=== PATIENT | male | born 1990 | race Caucasian/White ===

== ENCOUNTER 2019-01-24 13:08 | Emergency (ER) | payer OTHER ==
[~2019-01-24] VITALS: Ht 180.3 cm; Wt 73.9 kg
[2019-01-24 13:17] VITALS: BP 157/102
[2019-01-24] MEDS ORDERED: NAPROSYN500 MG PO (13:26)
== END 2019-01-24 13:32 | disposition home or self-care (01) ==
LOC: M.ERS 13:08
DX: M26.602 Left temporomandibular joint disorder, unspecified (principal); F17.210 Nicotine dependence, cigarettes, uncomplicated; Z98.890 Other specified postprocedural states

== ENCOUNTER 2020-02-28 22:15 | Emergency (ER) | payer OTHER ==
[~2020-02-28] VITALS: Ht 180.3 cm; Wt 77.1 kg
[~2020-02-28 22:15] MED LIST: NAPROSYN500 MG PO
[2020-02-28 22:26] VITALS: BP 152/95
[2020-02-28 22:56] LABS: INFLUENZA A ANTIGEN Negative (Negative); INFLUENZA B ANTIGEN Negative (Negative)
== END 2020-02-28 23:06 | disposition home or self-care (01) ==
LOC: M.ERS 22:15
PROVIDERS: Emergency Medicine
DX: J06.9 Acute upper respiratory infection, unspecified (principal); Z20.828 Contact with and (suspected) exposure to other viral communicable diseases; F17.210 Nicotine dependence, cigarettes, uncomplicated; Z90.49 Acquired absence of other specified parts of digestive tract

== ENCOUNTER 2020-10-06 20:28 | Emergency (ER) | payer OTHER ==
[~2020-10-06] VITALS: Ht 180.3 cm; Wt 90.7 kg
[2020-10-06] MEDS ORDERED: LISINOPRIL10 MG PO (23:10)
[2020-10-06] MEDS ORDERED: DOXYCYCLINE 10100 M2 PO (23:10)
[2020-10-06 23:21] VITALS: BP 138/79
== END 2020-10-06 23:22 | disposition home or self-care (01) ==
LOC: M.ERS 20:28
DX: A26.0 Cutaneous erysipeloid (principal); A69.20 Lyme disease, unspecified; I10 Essential (primary) hypertension; F17.210 Nicotine dependence, cigarettes, uncomplicated; Z90.49 Acquired absence of other specified parts of digestive tract

== ENCOUNTER 2021-03-17 12:07 | Emergency (ER) | payer OTHER ==
[~2021-03-17] VITALS: Ht 180.3 cm; Wt 88.5 kg
[~2021-03-17 12:07] MED LIST changes: +DOXYCYCLINE 10100 M2 PO; +LISINOPRIL10 MG PO
[2021-03-17 12:52] VITALS: BP 131/87
== END 2021-03-17 12:52 | disposition home or self-care (01) ==
LOC: M.ERS 12:07
DX: Z20.822 Contact with and (suspected) exposure to COVID-19 (principal); I10 Essential (primary) hypertension; F17.210 Nicotine dependence, cigarettes, uncomplicated; Z90.49 Acquired absence of other specified parts of digestive tract